=== PATIENT | male | born 1995 ===

== ENCOUNTER 2020-11-03 15:21 | Outpatient (REF) | payer MEDICAID, SELFPAY ==
--- NOTE | 2020-11-04 10:35 | MHC.AU.HFU ---
Hearing Instrument Follow-Up- Binaural Date of Visit: 11/03/20 [employer] Hrms Developer Used: ASL- In Person Right Ear: Chronometer Assembler: O[employer]on Model: Dynamo SP8 BTE Serial Number: [id number] Battery Size: 13 Left Ear: Chronometer Assembler: Oticon Model: Dynamo SP8 Serial Number: [id number] Battery Size: 13 Follow-Up Summary: Patient reports that his hearing aids have been producing feedback for about one year. He also has found the volume to be too low. He has not been wearing them because of this. He has been wearing an older Oticon Safari BTE. Otoscopy performed. Both canals occluded w/cerumen. Cerumen removal performed without incident. Molds were cleaned and re-tubed on his Dynamo instruments, as well as the Safari. Patient reported the Dynamo hearing aids sounded much better after cerumen removal and hearing aid maintenance. No feedback was noted. Patient asked if he could get a new pair of molds, as the current ones are over a year old. Impressions taken without incident and sent to [employer]. Gave instructions for them to make canal length as long as possible, which patient prefers. Recommendations: Patient will be contacted when materials have arrived. Diagnosis Code(s): Primary Diagnosis: H90.3 Bilateral Sensorineural Hearing Loss Signature: Provider: Apoorva Ernst, [place]
== END 2020-11-03 15:22 | disposition home or self-care (01) ==
LOC: HO.HAP 15:21
PROVIDERS: Visit Provider Internal Medicine
DX: Z46.1 Encounter for fitting and adjustment of hearing aid (principal); H90.3 Sensorineural hearing loss, bilateral
CPT/HCPCS: 92593; V5275

== ENCOUNTER 2020-11-29 09:29 | Outpatient (REF) | payer MEDICAID, SELFPAY | END 2020-11-29 09:30 | disposition home or self-care (01) | LOC: HO.HAP 09:29 | PROVIDERS: Visit Provider Internal Medicine | DX: H90.3 Sensorineural hearing loss, bilateral (principal); Z46.1 Encounter for fitting and adjustment of hearing aid | CPT/HCPCS: V5264 ==

== ENCOUNTER 2021-12-01 10:34 | Outpatient (REF) | payer MEDICAID, SELFPAY ==
--- NOTE | 2021-12-02 13:52 | MHC.AU.HAS ---
Hearing Aid Evaluation Date of Visit: 12/01/21 Parts Designer Used: ASL- In Person Historical Information: Description of Hearing: Severe to profound sensorineural hearing loss bilaterally Current personal amplification information, if applicable: Pair of Oticon Dynamo SP8, obtained in 2017 Summary: Patient was recently given a medical clearance for new hearing aids from ENT, Dr. Escobar. Patient is a long-time user of [employer] power BTEs. He is interested in Bluetooth compatibility and has an iPhone. Impressions were taken bilaterally without incident and will be sent to [facility]. Hearing Aid Prescription: Based on the individual?s shared listening needs, communication environments, dexterity, desire for connectivity, and personal preferences, the following prescription for amplification has been made: Right ear: Exceptional Children'S Teacher: Oticon Model: Xceed 2 SP Battery Size: 13 Color: Black Left ear: Left ear prescription to be same as Right Hearing Aid above: Exceptional [employer] Teacher: Oticon Model: Dynamo SP8 SP Battery Size: 13 Color: Black Action Taken/Action Needed: Hearing Instrument Fitting to be scheduled when materials arrive Primary Diagnosis: H90.3 Bilateral Sensorineural Hearing Loss Signature: Provider: Apoorva Ernst, CCC-A
== END 2021-12-01 10:35 | disposition home or self-care (01) ==
LOC: HO.HAP 10:34
PROVIDERS: Visit Provider Physician Assistant Medical
DX: Z46.1 Encounter for fitting and adjustment of hearing aid (principal); H90.3 Sensorineural hearing loss, bilateral
CPT/HCPCS: 92591; 92593; V5275

== ENCOUNTER 2022-01-12 10:02 | Outpatient (REF) | payer MEDICAID, SELFPAY ==
--- NOTE | 2022-01-12 12:34 | MHC.AU.HFA ---
Hearing Instrument Fitting- Adult- Binaural Date of Visit: 01/12/22 Client Renewal Specialist Used: ASL- In Person Hearing Instruments Dispensed: Right Ear: Cq Developer: Oticon Model: Xceed 2 SP BTE Serial Number: [id number] Repair Warranty: 01/02/2025 Loss and Damage Warranty: 01/02/2025 Battery Size: 13 Color: Black Type of Mold: Microsonic Shell Beige [id number] Left Ear: Cq Developer: Oticon Model: Xceed 2 SP BTE Serial Number: [id number] Repair Warranty: 01/02/2025 Loss and Damage Warranty: 01/02/2025 Battery Size: 13 Color: Black Type of Mold: Microsonic Shell Beige [id number] Summary of Fitting: [employer] tax services manager set to 3. Verifit performed and levels adjusted to better reach targets. Patient was pleased with the sound and did not feel any additional adjustments to the primary program were necessary. He requested a program to help him focus on certain sounds. In P2, Auditory focus was increased to Very High and microphone set to Fixed Directional. Hearing aid care and maintenance were discussed and demonstrated. The hearing aids were paired to his iPhone and to the [employer] carlos. Recommendations: Patient is an experienced hearing aid user and will contact us is follow-up is needed. Diagnosis Code(s): Primary Diagnosis: H90.3 Bilateral Sensorineural Hearing Loss Signature: Provider: Apoorva Ernst, [facility]
== END 2022-01-12 10:03 | disposition home or self-care (01) ==
LOC: HO.HAP 10:02
PROVIDERS: Visit Provider Internal Medicine
DX: Z46.1 Encounter for fitting and adjustment of hearing aid (principal); H90.3 Sensorineural hearing loss, bilateral
CPT/HCPCS: V5011; V5020; V5160; V5261; V5264; V5266

== ENCOUNTER 2024-05-15 09:01 | Outpatient (REF) | payer OTHER, SELFPAY ==
--- NOTE | 2024-05-15 09:46 | MHC.AU.HA3 ---
Hearing Instrument Follow-Up- Binaural Date of Visit: 05/15/24 Right Ear: Make, Model, Color, Serial Number: Otrj Xceed 2 BTE SP SN: [id number] Color: Black Car Driver Repair Warranty: 01/02/2025 Car Driver Loss and Damage Warranty: 01/02/2025 [facility] Service Plan: 01/12/2023 Battery Size: 13 Earmold/Dome/CShell/SlimTip:Microsonic M45 full shell Dispensed By: [facility] Date of Fittin01/12/2022 Left Ear: Make, Model, Color, Serial Number: Otrj Xceed 2 BTE SP SN: [id number] Color: Black Car Driver Repair Warranty: 01/02/2025 Car Driver Loss and Damage Warranty: 01/02/2025 [facility] Service Plan: 01/12/2023 Battery Size: 13 Earmold/Dome/CShell/SlimTip: Microsonic M45 full shell Dispensed By: [facility] Date of Fittin01/12/2022 Follow-Up Summary: In person services host not available, technical difficulties with video interpreting, used basic sign language to communicate. Lost both EMs, eaten by cat. Impressions taken, bilaterally, without incident. Sent to [employer]. Still has HAs, reportedly only used Xceeds for bluetooth connection. Now has Android cellphone, cannot directly connect Xceeds, would need ConnectClip. Does not like overall sound quality - difficulty hearing speech, sound seems to intermittently shut down. Prefers sound quality of old HAs. Typically uses Dynamo SP 8 (SN:[id number]) on one ear and Safari 900 SP (SN: [id number]) on the other; lost the other HAs from each pair. Will readdress programming of Xceeds at next appointment. Opted to leave all four HAs here to hold until EMs arrive - in Repair Drawer. Recommendations: Patient will be contacted when materials have arrived. Diagnosis Code(s): Primary Diagnosis: H90.3 Bilateral Sensorineural Hearing Loss Signature: Provider: Adan Blanchard, [facility]
== END 2024-05-15 09:02 | disposition home or self-care (01) ==
LOC: HO.HAP 09:01
PROVIDERS: PCP Internal Medicine; Visit Provider Internal Medicine
DX: Z13.89 Encounter for screening for other disorder (principal)

== ENCOUNTER 2024-07-08 13:56 | Outpatient (REF) | payer OTHER, SELFPAY | END 2024-07-08 13:57 | disposition home or self-care (01) | LOC: HO.HAP 13:56 | PROVIDERS: Visit Provider Internal Medicine | DX: Z46.1 Encounter for fitting and adjustment of hearing aid (principal); H90.3 Sensorineural hearing loss, bilateral | CPT/HCPCS: V5264; V5266 ==